=== PATIENT | male | born 1990 | race Caucasian/White ===

== ENCOUNTER 2020-01-27 08:44 | Emergency (ER) | payer SELFPAY ==
[2020-01-27] MEDS ORDERED: DEXAMETHASONE SOD PHOS INJ 10 MG/1 ML VIAL IM ONE (11:29)
--- NOTE | 2020-01-27 11:33 | ER Document Report ---
Entered by FRANK DIEHL SCRIBE 01/27/20 1113 Acting as scribe for:PAYAL PEARCE MD ED Skin Rash/Insect Bite/Abscs - General Chief Complaint: Rash Stated Complaint: RASH Time Seen by Provider: 01/27/20 10:15 Mode of Arrival: Ambulatory Information source: Patient Notes: This 29 year old male patient presents to the emergency department today with complaints of a rash for the last two days. Patient reports that it itches bad and he sometimes notices blisters which weep clear fluid. Patient has tried Benadryl cream and Benadryl at home with minimal relief. Patient does have dogs at home. He denies shortness of breath, cough, fevers, chills, sore throat, diarrhea, times been outdoors, or headache. TRAVEL OUTSIDE OF THE [place] IN LAST 30 DAYS: No - Related Data Allergies/Adverse Reactions: No Known Allergies Allergy (Verified 01/27/20 09:10) Past Medical History - General Information source: Patient - Social History Smoking Status: Current Every Day Smoker Cigarette use (# per day): Yes Chew tobacco use (# tins/day): No Frequency of alcohol use: None Drug Abuse: None Lives with: Family Family History: Reviewed & Not Pertinent Patient has homicidal ideation: No - Medical History Medical History: Negative Surgical Hx: Negative - Immunizations Hx Diphtheria, Pertussis, Tetanus Vaccination: Yes Review of Systems - Review of Systems Constitutional: No symptoms reported EENT: No symptoms reported Cardiovascular: No symptoms reported Respiratory: No symptoms reported Gastrointestinal: No symptoms reported Genitourinary: No symptoms reported Male Genitourinary: No symptoms reported Musculoskeletal: No symptoms reported Skin: See HPI, Rash Hematologic/Lymphatic: No symptoms reported Neurological/Psychological: No symptoms reported -: Yes All other systems reviewed and negative Physical Exam - Vital signs Vitals: Temp Pulse Resp BP Pulse Ox 99.3 F 78 16 128/84 H 98 01/27/20 08:47 01/27/20 08:47 01/27/20 08:47 01/27/20 08:47 01/27/20 08:47 - Notes Notes: Physical Exam: General: Alert, appears well. HEENT: Normocephalic. Atraumatic. PERRL. Extraocular movements intact. Oropharynx clear. Neck: Supple. Non-tender. Respiratory: No respiratory distress. Clear and equal breath sounds bilaterally. Cardiovascular: Regular rate and rhythm. Abdominal: Normal Inspection. Non-tender. No distension. Normal Bowel Sounds. Back: No gross abnormalities. Extremities: Moves all four extremities. Upper extremities: Normal inspection. Normal ROM. Lower extremities: Normal inspection. No edema. Normal ROM. Neurological: Normal cognition. AAOx4. Normal speech. Psychological: Normal affect. Normal Mood. Skin: Diffusely spread fine macular rash. Scratches areas frequently during exam. Course - Vital Signs Vital signs: Temp Pulse Resp BP Pulse Ox 98.0 F 60 18 124/78 99 01/27/20 11:48 01/27/20 11:48 01/27/20 11:48 01/27/20 11:48 01/27/20 11:48 Discharge - Discharge Clinical Impression: Rash and nonspecific skin eruption, Pruritus Condition: Stable Disposition: HOME, SELF-CARE Additional Instructions: Itching, NonSpecific Itching can be a symptom of both skin problems or internal diseases. Most of the time, itching is simply a nuisance, and doesn't mean there's any serious underlying problem. If there are no symptoms of an ongoing medical condition, we simply prescribe anti-itch medicine to relieve symptoms. Itching can be due to skin allergic reactions such as poison oak, poison ronal, dermatitis, or jewelry allergy. It can be caused by dry skin, or skin that's been stretched by , weight gain, or water retention. It can be caused by skin parasites such as scabies, or by bug bites. Itching can be caused by internal allergy, such as food allergy, or medication allergy, or intestinal parasites. It can accompany liver disease. Apply a non-perfumed ointment like Vaseline, Eucerin lotion, Nutraderm, or Lubriderm if your skin is dry. Apply frequently, especially after bathing. Benadryl, Hydroxyzine, Doxepin and other anti-itch medicines can help control the urge to scratch. Hydrocortisone cream, or a prescription steroid cream or ointment can help reduce inflammation. Avoid hot baths or showers. Use as little soap as possible while bathing. Don't scrub your skin unless the doctor has specifically told you to do this. Call the doctor or return if there are signs of infection, fever, pain, or if symptoms become severe. Prescriptions: Diphenhydramine HCl [Benadryl 25 mg Capsule] 25 mg PO QID PRN #20 capsule PRN Reason: Methylprednisolone [Medrol Dosepack (4 mg/Tab) 21 Tab/Dosepak] 4 mg PO ASDIR PRN #21 [email or web address] PRN Reason: I personally performed the services described in the documentation, reviewed and edited the documentation which was dictated to the scribe in my presence, and it accurately records my words and actions.
[2020-01-27 11:49] VITALS: BP 124/78
== END 2020-01-27 12:02 | disposition home or self-care (01) ==
LOC: ER 08:44
DX: R21 Rash and other nonspecific skin eruption (principal); L29.9 Pruritus, unspecified; F17.210 Nicotine dependence, cigarettes, uncomplicated
CPT/HCPCS: 99282; 96372; J1100